=== PATIENT | female | born 1980 | race Caucasian/White ===

== ENCOUNTER 2017-03-04 18:32 | Emergency (ER) | payer MEDICAID ==
[2010-08-17 19:10] VITALS: BMI 27.9
== END 2017-03-04 20:12 | disposition home or self-care (01) ==
LOC: D.ER 18:32
DX: J11.1 Influenza due to unidentified influenza virus with other respiratory manifestations (principal); J06.9 Acute upper respiratory infection, unspecified; F17.200 Nicotine dependence, unspecified, uncomplicated